=== PATIENT | female | born 1980 | race Caucasian/White ===

== ENCOUNTER → 2019-01-29 | Outpatient (CLI) | payer OTHER ==
--- NOTE | 2019-01-29 17:10 | KCIC ---
EXAM: Brain MRI without contrast. HISTORY: Migraine. TECHNIQUE: Multiplanar, multisequence magnetic resonance imaging of the brain was performed without contrast. COMPARISON: None. FINDINGS: There is no restricted diffusion to suggest acute or subacute infarction. There is no susceptibility effect to suggest hemorrhage. There is no mass effect or midline shift. There is no hydrocephalus. No suspicious white matter lesion is seen. The orbits are unremarkable. There is mild paranasal sinus mucosal thickening. There is a small amount of fluid within the right mastoid air cells. There are normal flow voids within the cerebral vessels. No suspicious calvarial lesion is seen. There is mild cerebellar tonsillar ectopia, measuring 6 mm inferior to the foramen magnum. IMPRESSION: 1. No acute intracranial finding. 2. Cerebellar tonsillar ectopia, measuring 6 mm. There are no secondary findings of a Chiari I malformation, such as crowding of the foramen magnum or abnormal configuration of the cerebellar tonsils. Electronically signed by: Daisy Alonso MD (01/29/2019 5:07 PM) [facility]
== END | disposition home or self-care (01) ==
LOC: KCIC MRI 15:04
PROVIDERS: ATTEND Psychiatry & Neurology Neurology with Special Qualifications in Child Neurology
DX: G43.111 Migraine with aura, intractable, with status migrainosus (principal); J35.8 Other chronic diseases of tonsils and adenoids
CPT/HCPCS: 70551

== ENCOUNTER → 2019-03-05 | Outpatient (CLI) | payer OTHER ==
--- NOTE | 2019-03-05 12:33 | KCIC ---
LUMBAR SPINE WO CONTRAST History: Chronic low back pain. Right lower extremity pain. Technique: Multiplanar, multi sequential MR imaging was performed of the lumbar spine. Comparison: None Findings: Normal vertebral body height and alignment. No fracture. Degenerative endplate edema L5-S1. No pathologic marrow replacing process. Conus terminates at the normal location. No evidence of nerve root clumping. L1-L2: No canal or neuroforaminal narrowing. L2-L3: No canal or neuroforaminal narrowing. L3-L4: No canal or neuroforaminal narrowing. Mild facet arthropathy L4-L5: Small posterior disc bulge. Right central annular fissure. Moderate facet arthropathy. Mild subarticular recess narrowing. No canal narrowing. No neuroforaminal narrowing. L5-S1: Broad-based posterior disc bulge with superimposed right subarticular recess disc protrusion/extrusion and annular fissure. Compression of the descending right S1 nerve root within the subarticular recess. No canal narrowing. And moderate right and mild left neural foraminal narrowing. Impression: 1. Right L5-S1 subarticular recess protrusion/extrusion compressing the right S1 descending nerve root. Correlate for radiculopathy. 2. Moderate right L5-S1 neural foraminal narrowing. Electronically signed by: Farhan Manning DO (03/05/2019 12:30 PM) [facility]
== END | disposition home or self-care (01) ==
LOC: KCIC MRI 10:41
PROVIDERS: ATTEND Family Medicine
DX: M12.88 Other specific arthropathies, not elsewhere classified, other specified site (principal); M48.07 Spinal stenosis, lumbosacral region
CPT/HCPCS: 72148

== ENCOUNTER 2021-05-27 08:38 | Emergency (ER) | payer BC, OTHER ==
[~2021-05-27] VITALS: Ht 165.1 cm; Wt 72.7 kg
[2021-05-27 09:14] VITALS: BP 150/96
--- NOTE | 2021-05-27 09:54 | PHYS DOC ---
Past Medical History Past Medical History: Hypertension Past Surgical History: Appendectomy Smoking Status: Current Every Day Smoker Alcohol Use: None General Adult EDM: Chief Complaint: FOOT INJURY PAIN HPI: HPI: Patient is a 40-year-old female that presents today with right foot pain with a raised area on the top of the foot. Patient denies trauma patient states the pain and swelling has been going on for the past 2 weeks, patient states she saw her primary care physician and because she is having increased pain he advised her to come to the emergency department. 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 Patient is also concerned that her father has a history of blood clots and she is concerned this could be a blood clot. Review of Systems: Review of Systems: Constitutional: Denies fever or chills. [] Eyes: Denies change in visual acuity. [] HENT: Denies nasal congestion or sore throat. [] Respiratory: Denies cough or shortness of breath. [] Cardiovascular: Denies chest pain or edema. [] GI: Denies abdominal pain, nausea, vomiting, bloody stools or diarrhea. [] : Denies dysuria. [] Musculoskeletal: Right foot pain Integument: Denies rash. [] Neurologic: Denies headache, focal weakness or sensory changes. [] Endocrine: Denies polyuria or polydipsia. [] Lymphatic: Denies swollen glands. [] Psychiatric: Denies depression or anxiety. [] Heart Score: C/O Chest Pain: N/A Risk Factors: Risk Factors: DM, Current or recent (<one month) smoker, HTN, HLP, family history of CAD, obesity. Risk Scores: Score 0 - 3: 2.5% MACE over next 6 weeks - Discharge Home Score 4 - 6: 20.3% MACE over next 6 weeks - Admit for Clinical Observation Score 7 - 10: 72.7% MACE over next 6 weeks - Early Invasive Strategies Allergies: Allergies: Allergies Coded Allergies Type Severity Reaction Last Updated Verified No Known Drug Allergies 05/27/21 No Physical Exam: PE: Constitutional: Well developed, well nourished, no acute distress, non-toxic appearance. [] HENT: Normocephalic, atraumatic, bilateral external ears normal, oropharynx moist, no oral exudates, nose normal. [] Eyes: PERRLA, EOMI, conjunctiva normal, no discharge. [] Neck: Normal range of motion, no tenderness, supple, no stridor. [] Cardiovascular:Heart rate regular rhythm, no murmur [] Lungs & Thorax: Bilateral breath sounds clear to auscultation [] Abdomen: Bowel sounds normal, soft, no tenderness, no masses, no pulsatile masses. [] Skin: Warm, dry, no erythema, no rash. [] Back: No tenderness, no CVA tenderness. [] Extremities: Right foot pain raised area noted between the second and third metatarsal, soft in nature. Neurovascular intake distal to rasied area. 2+ pedal pulses. Neurologic: Alert and oriented X 3, normal motor function, normal sensory function, no focal deficits noted. [] Psychologic: Affect normal, judgement normal, mood normal. [] Current Patient Data: Vital Signs: Vital Signs Date Time Temp Pulse Resp B/P (MAP) Pulse Ox O2 Delivery O2 Flow Rate FiO2 05/27/21 09:14 97.8 110 20 150/96 (114) 97 Room Air 97.8 EKG: EKG: [] Radiology/Procedures: Radiology/Procedures: [REASON: bump and pain in foot PROCEDURE: FOOT RIGHT 3V Exam Date: 05/27/2021 9:16 AM XR FOOT_RIGHT 3 VIEWS Indication: Reason: bump and pain in foot / Spl. Instructions: / History: . FINDINGS/ IMPRESSION: No acute fracture or dislocation. Alignment and joint spaces are maintained. The soft tissues are within normal limits. Electronically signed by: Marcello Zuñiga MD (05/27/2021 10:10 AM) [id number]] Course & Med Decision Making: Course & Med Decision Making Pertinent Labs and Imaging studies reviewed. (See chart for details) 1046 reviewed radiology findings with patient states there is no fracture, will have patient follow-up with podiatry as soon as possible for further management of her foot pain. We will also place patient in a postop shoe to help with pain. Mariselaon Disclaimer: Misti Disclaimer: This electronic medical record was generated, in whole or in part, using a voice recognition dictation system. Departure Departure Impression: Primary Impression: Foot pain, right Disposition: 01 HOME / SELF CARE / HOMELESS Condition: STABLE Referrals: ELMA HOWARD MD (PCP) CARITO VILLEGAS DPM Additional Instructions: Wear postop shoe as needed for comfort Take [id number] Tylenol and/or ibuprofen as needed for pain Follow-up with podiatry Dr. Villegas as soon as possible for further management FE LO APRN May 27, 2021 09:54
--- NOTE | 2021-05-27 10:12 | RAD ---
Exam Date: 05/27/2021 9:16 AM XR FOOT_RIGHT 3 VIEWS Indication: Reason: bump and pain in foot / Spl. Instructions: / History: . FINDINGS/ IMPRESSION: No acute fracture or dislocation. Alignment and joint spaces are maintained. The soft tissues are w ithin normal limits. Electronically signed by: Marcello Zuñiga MD (05/27/2021 10:10 AM) [id number]
== END 2021-05-27 11:15 | disposition home or self-care (01) ==
LOC: ER 08:38
DX: M79.671 Pain in right foot (principal); I10 Essential (primary) hypertension; F17.200 Nicotine dependence, unspecified, uncomplicated
CPT/HCPCS: 73630; 99283

== ENCOUNTER 2021-06-10 05:46 | Day surgery (SDC) | payer BC ==
[~2021-06-10] VITALS: Ht 162.6 cm; Wt 77.2 kg
[~2021-06-10 05:46] MED LIST: ALPR2TAB5 PO; CYCL10TA19 PO; HYDR-2769 PO; IBUP-1060 PO; ICOS1CAP PO; LOSA100T14 PO; POTA8CAP19 PO; VENL37.5 PO; ZOLP10TA PO
[2021-06-10] MEDS ORDERED: HYDROmorphone 2 MG/ML VIAL IVP PRN (06:00)
[2021-06-10] MEDS ORDERED: IV RINGERS,LACTATED 1000ML 1,000 ML IV SCH (06:00)
[2021-06-10] MEDS ORDERED: ceFAZolin SODIUM IV Push 1 GM VIAL. IVP PRN (06:00)
[2021-06-10] MEDS ORDERED: fentaNYL PF VIAL 100 MCG/2 ML VIAL IVP PRN ×2 (06:00)
[2021-06-10] MEDS ORDERED: PROCHLORPERAZINE 10 MG/2 ML VIAL. IVP PRN (06:00)
[2021-06-10] MEDS ORDERED: MORPHINE SULFATE 2 MG/ML INJ. IVP PRN (06:00)
[2021-06-10 06:18] VITALS: BP 128/83
[2021-06-10] MEDS ORDERED: fentaNYL PF VIAL 100 MCG/2 ML VIAL ONE (06:46)
[2021-06-10] MEDS ORDERED: MIDAZOLAM HCL/PF 2 MG/2 ML VIAL. ONE (06:46)
[2021-06-10] MEDS ORDERED: PROPOFOL 10 MG/ML (20ML) VIAL. IV ONE (06:46)
[2021-06-10] MEDS ORDERED: LIDOCAINE 2% PF 5 ML VIAL. ONE (06:46)
[2021-06-10] MEDS ORDERED: BUPIVACAINE MPF 0.5% 30 ML VIAL. ONE (07:01)
[2021-06-10] MEDS ORDERED: TRIAMCINOLONE ACET/PF OPHTH 40 MG/ML VIAL. IO ONE (07:01)
[2021-06-10] MEDS ORDERED: DEXAMETHASONE SOD PHOS 4 MG/ML VIAL ONE (07:45)
[2021-06-10] MEDS ORDERED: ONDANSETRON PF 4 MG/2 ML VIAL. ONE (07:45)
[2021-06-10] MEDS ORDERED: SEVOFLURANE 31 TO 60 MINUTES. IH ONE (07:53)
[2021-06-10] MEDS ORDERED: KETOROLAC 30 MG/ML VIAL. ONE (08:11)
[2021-06-10] MEDS ORDERED: ONDANSETRON PF 4 MG/2 ML VIAL. IVP PRN (08:30)
[2021-06-10] MEDS ORDERED: ACETAMINOPHEN 325 MG TABLET. PO ONE (08:30)
[2021-06-10] MEDS ORDERED: GABAPENTIN 100 MG CAPSULE. PO ONE (08:30)
[2021-06-10] MEDS ORDERED: oxyCODONE/APAP 5/325 1 TAB TABLET PO ONE (08:30)
--- NOTE | 2021-06-10 08:32 | PDOC4 ---
OPERATIVE NOTE Date: Date: Jun 10, 2021 Pre-Op Diagnosis: Right dorsal foot soft tissue mass Post-Op Diagnosis: Same as above Procedure Performed: Right dorsal foot soft tissue mass excision Nerve resection at the distal second intermetatarsal space, right Surgeon: Carito Conroy DPM Anesthesia Type: General with LMA Blood Loss: 5 cc Specimans Obtained: Soft tissue mass from the dorsal second third metatarsal necks, right Nerve at the distal second intermetatarsal space for neuroma rule out, right Findings: Lobulated, but rather ill-defined soft tissue mass embedded in the subcutaneous layer overlying the second and third metatarsal necks. The intermetatarsal nerve between the second and third metatarsal heads were also intertwined in the soft tissue mass. There was no soft tissue mass extension into the tendon sheath or the joint capsule. The soft tissue mass was well vascularized. Complications: None Operative Note: Patient was brought into the operating room and placed on the operating table in a supine position. A timeout was performed to confirm patient's identity, location of surgery and procedure. After induction of general anesthesia, a pneumatic high ankle tourniquet was placed with pressure set 250 mmHg. Following alcohol skin prep, 7 cc of 0.25% Marcaine plain was infiltrated to the dorsal midfoot proximal to the soft tissue mass. The right lower extremity was then scrubbed, prepped and draped in the usual sterile manner. The right lower extremity was elevated for gravity exsanguination and the tourniquet was inflated to 250 mmHg. The direction was directed to the dorsal distal second intermetatarsal space. The soft tissue mass was outlined and a curvilinear incision was made overlying the soft tissue mass. The incision was carried to deep to the subcutaneous layer with care to protect and retract all the neurovascular bundles. Gross and lobulated soft tissue mass was visualized and palpitated. The mass was ill- defined without any clear margins or borders. The cutaneous vessels and distal intermetatarsal nerve were found interwined with the soft tissue mass at the level of the distal second intermetatarsal space. The soft tissue mass did not have any connecting stocks to the dorsal extensor tendons or the MTPJ capsule. The soft tissue mass was carefully from the surrounding tissue and subsequently removed. The tissue was sent for pathology study. The soft tissue mass around the dorsal cutaneous nerve was also carefully and sent as a separate pathology specimen. Because patient was complaining of neurologic/burning sensation at the dorsal forefoot, the soft tissue mass was ill-defined and had a close proximity to the nerve, the decision was made to resect the distal segment of the intermetatarsal nerve to avoid residual neuralgia and also to obtain a pathology study on the diagnosis. At this time, the surgical site was irrigated with copious saline solution. Subsequent wound inspection was negative for any residual soft tissue mass. Tourniquet was deflated and hemostasis was achieved with compression and Bovie. The surgical site was closed in layers with 4-0 Monocryl and 4-0 nylon. 6 cc of 0.25% Marcaine plain was infiltrated into the surgical site for postoperative anesthesia. The surgical foot was dressed with Xeroform, 4 x 4 gauze, soft roll and Héctor bandage with minimal compression. A surgical shoe was applied to the surgical foot. Patient tolerated procedure anesthesia well with vital signs stable and neurovascular status intact. Patient was then transferred to PACU for continued recovery. CARITO CONROY DPM Jun 10, 2021 08:32
[2021-06-10 09:12] VITALS: BP 133/89
--- NOTE | 2021-06-10 10:57 | SSS ---
DATE OF SERVICE: 06/10/2021 ADMIT DATE: 06/10/2021 CHIEF COMPLAINT: Right foot pain. HISTORY OF PRESENT ILLNESS: The patient is a pleasant 40-year-old female who presents today for elective surgery with Dr. Villegas of the Podiatry Service. Basically, we have been requested for preoperative evaluation. PAST MEDICAL HISTORY: Back pain, hypertension, chronic right foot pain, Chiari malformation, hyperlipidemia. ALLERGIES: None. FAMILY HISTORY: Noncontributory. 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 MEDICATIONS: Reviewed. Please refer to the MRAD. REVIEW OF SYSTEMS: GENERAL: No history of weight change, weakness or fevers. SKIN: No bruising, hair changes or rashes. EYES: No blurred, double or loss of vision. NOSE AND THROAT: No history of nosebleeds, hoarseness or sore throat. HEART: No history of palpitations, chest pain or shortness of breath on exertion. LUNGS: Denies cough, hemoptysis, wheezing or shortness of breath. GASTROINTESTINAL: Denies changes in appetite, nausea, vomiting, diarrhea or constipation. GENITOURINARY: No history of frequency, urgency, hesitancy or nocturia. NEUROLOGIC: Denies history of numbness, tingling, tremor or weakness. PSYCHIATRIC: No history of panic, anxiety or depression. ENDOCRINE: No history of heat or cold intolerance, polyuria or polydipsia. EXTREMITIES: She complaints of foot pain. PHYSICAL EXAMINATION: VITALS: Within normal limits and are stable. GENERAL: No apparent distress. Alert and oriented. HEENT: Normal cephalic atraumatic, external auditory canals are patent. EYES: Extraocular muscles are intact, pupils are equally round and reactive to light and accommodation. MUSCULOSKELETAL: Well developed, well nourished, good range of motion. ENDOCRINE: No thyromegaly was palpated. LYMPHATICS: No cervical chain or axillary nodes were noted. HEMATOPOIETIC: No bruising. NECK: Supple, no JVD, no thyromegaly was noted. LUNGS: Clear to auscultation in all lung vela without rhonchi or wheezing. HEART: RRR, S1, S2 present. Peripheral pulses intact, no obvious murmurs were noted. ABDOMEN: Soft, nontender. Positive bowel sounds no organomegaly, normal bowel sounds. EXTREMITIES: Without any cyanosis, clubbing, or edema. Pedal pulses intact, Homans sign is negative. NEUROLOGIC: Normal speech, normal tone. A and O x 3, moves all extremities, no obvious focal deficits. PSYCHIATRIC: Normal affect, normal mood. Stable. SKIN: No ulcerations or rashes, good skin turgor, no jaundice. VASCULAR: Good capillary refill, neurovascular bundle appears to be intact. ASSESSMENT AND PLAN: Chronic right foot pain with some type of right foot malformation. Dr. Villegas is going to operate on her today and correct the situation. Clinically, she looks great for surgery. I suspect she is at low risk for intraoperative or postoperative complications. I am okay with her going forward with surgery. If he needs help getting her admitted after surgery or if there are any problems, please call and we will assist with that. FITO BRAND: Sofie TID: [id number]
--- NOTE | 2021-06-12 17:09 | PATHOLOGY ---
[facility] Accession Number: [id number] . 01 Material submitted: . PART A: foot - SOFT TISSUE IN FAT. Modifiers: right PART B: foot - SOFT TISSUE AROUND NERVE. Modifiers: right, AROUND NERVE PART C: foot - NERVE (RIGHT FOOT). Modifiers: right, NERVE . 01 Clinical history: . SOFT TISSUE MASS NERVE EXCISION AND RIGHT SOFT TISSUE MASS EXCISION GANGLION CYST RIGHT FOOT . 02 Diagnosis: A. Segments of fibroadipose tissue, designated "soft tissue and fat": - Focal reactive fibrosis and fat necrosis. . B. Segment of fibroadipose tissue, designated "soft tissue around nerve": - Focal reactive fibrosis. . C. Fibroadipose tissue and nerve, designated "nerve (right foot)": - Segment of peripheral nerve identified. (JPM/db; 06/12/2021) LBQ 06/12/2021 1117 Local . 02 Electronically signed: . Rohit Li MD, Pathologist NPI- [id number] . 01 Gross description: . A. The specimen is received in formalin, labeled "Britney Da Silva, soft tissue in fat", the specimen is verified by Filemon Rodriguez on 06/11/2021 as being from the right foot. The specimen consists of 2 pale yellow to sun dusky fatty irregular tissues aggregating 1.9 x 1.8 x 0.5 cm. Sectioning reveals pale yellow dusky cut surfaces. The specimen is submitted entirely in A1. . B. The specimen is received in formalin, labeled "Britney Da Silva, soft tissue around nerve", the specimen has been verified by Filemon Rodriguez on 06/11/2021 as being from the right foot. The specimen consists of a pale yellow to sun soft and dusky irregular tissue measuring 1.1 x 0.5 x 0.3 cm. The specimen is bisected to reveal juares homogenous cut surfaces. The specimen is submitted entirely in B1. . C. The specimen is received in formalin, labeled "Avinash, Britney, nerve (right foot)" and the specimen consists of a sun-juares dusky soft portion of tissue (2.6 x 0.2 x 0.2 cm). The specimen is serially sectioned and submitted entirely in C1 to be embedded on end (ends inked yellow) and en face. ([place]; 06/11/2021) DKA/DKA 06/11/2021 1813 Local . 02 Pathologist provided ICD-10: M79.89 . 02 CPT . 675409, [id number], [id number] Specimen Comment: A courtesy copy of this report has been sent to [phone], [phone] Specimen Comment: [id number] Specimen Comment: Report sent to / DR VITAL Performed at: 01 [facility] [address] [facility] [address], [place] [id number] MD Earl Raman MD Phone: [phone] Performed at: 02 [facility] [address] [place], [place] [id number] MD Rohit Li MD Phone: [phone]
== END 2021-06-10 09:47 | disposition home or self-care (01) ==
LOC: SURG 05:46
PROVIDERS: ATTEND Podiatrist
DX: M79.671 Pain in right foot (principal); M67.471 Ganglion, right ankle and foot; M79.89 Other specified soft tissue disorders; I10 Essential (primary) hypertension; E78.00 Pure hypercholesterolemia, unspecified; J44.9 Chronic obstructive pulmonary disease, unspecified; M10.9 Gout, unspecified; F41.9 Anxiety disorder, unspecified; F32.9 Major depressive disorder, single episode, unspecified; F17.210 Nicotine dependence, cigarettes, uncomplicated; Z79.899 Other long term (current) drug therapy; Z98.890 Other specified postprocedural states
CPT/HCPCS: 28039; 81025; 88304; 88305; A4930; A6253; A6254; A6402; A6449; J0690; J1100; J1885; J2250; J2405; J2704; J3010; J3301; J3490; A6443